=== PATIENT | female | born 1955 | race African-American/Black ===

== ENCOUNTER 2016-04-01 | Emergency (ER) | payer BC, OTHER ==
[~2016-04-01] VITALS: Ht 154.9 cm; Wt 110.2 kg
[2016-04-01 00:32] VITALS: BP 162/75
[2016-04-01] MEDS ORDERED: DILT240C2 PO (01:04)
--- NOTE | 2016-04-01 01:04 | PHYS DOC ---
Past Medical History Past Medical History: A-Fib, Anxiety, GERD, High Cholesterol, Hypertension Past Surgical History: Tonsillectomy, Other Additional Past Surgical Histo: HERNIA, BILATERAL LUMPECTOMY, CARPAL TUNNEL Alcohol Use: None Drug Use: None Adult General Chief Complaint Chief Complaint: HYPERTENSION [facility] HPI This is a 60-year-old female presents with concern for elevated blood pressure and in need of a new primary care follow-up for this. Patient states she has run out of her Cardizem dose at home and is in need of a refill and is will also a referral. She denies any specific complaints. She denies any headache. She denies any chest pain or shortness of breath. She complains of some mild pain that she's been having in her left hip but otherwise nothing new today. Patient was concerned as her blood pressure that she took earlier today was in the 140s systolic. Review of Systems Review of Systems Constitutional: Denies fever or chills [] Eyes: Denies change in visual acuity, redness, or eye pain [] HENT: Denies nasal congestion or sore throat [] Respiratory: Denies cough or shortness of breath [] Cardiovascular: No additional information not addressed in HPI [] GI: Denies abdominal pain, nausea, vomiting, bloody stools or diarrhea [] : Denies dysuria or hematuria [] Musculoskeletal: Denies back pain or joint pain [] Integument: Denies rash or skin lesions [] Neurologic: Denies headache, focal weakness or sensory changes [] Endocrine: Denies polyuria or polydipsia [] Physical Exam Physical Exam Constitutional: Well developed, well nourished, no acute distress, non-toxic appearance. [] HENT: Normocephalic, atraumatic, bilateral external ears normal, oropharynx moist, no oral exudates, nose normal. [] Eyes: PERRLA, EOMI, conjunctiva normal, no discharge. [] Neck: Normal range of motion, no tenderness, supple, no stridor. [] Cardiovascular:Heart rate regular rhythm, no murmur [] Lungs & Thorax: Bilateral breath sounds clear to auscultation [] Abdomen: Bowel sounds normal, soft, no tenderness, no masses, no pulsatile masses. [] Skin: Warm, dry, no erythema, no rash. [] Back: No tenderness, no CVA tenderness. [] Extremities: No tenderness, no cyanosis, no clubbing, ROM intact, no edema. [] Neurologic: Alert and oriented X 3, normal motor function, normal sensory function, no focal deficits noted. [] Psychologic: Affect normal, judgement normal, mood normal. [] Current Patient Data Vital Signs Vital Signs Date Time Temp Pulse Resp B/P Pulse Ox O2 Delivery O2 Flow Rate FiO2 04/01/16 00:32 97.9 84 20 162/75 99 Room Air 97.9 EKG EKG [] Radiology/Procedures Radiology/Procedures [] Course & Med Decision Making Course & Med Decision Making Pertinent Labs and Imaging studies reviewed. (See chart for details) This 60-year-old female who is essentially having no symptoms that is slightly elevated blood pressure 165/75 will be discharged from the hospital with a 10 day course of her usual Cardizem dose. I will also be providing her information for referral for a new primary care physician. I counseled the patient at length that she is to be seen within the next 10 days for her blood pressure and have it rechecked. She is very agreeable to this plan and discharged without incident. Dragon Disclaimer Dragon Disclaimer This electronic medical record was generated, in whole or in part, using a voice recognition dictation system. Departure Departure Impression: Primary Impression: Hypertension Disposition: 01 HOME, SELF-CARE Admitting Physician: Sarkis Villagran Condition: STABLE Referrals: NO PCP (PCP) Patient Instructions: Hypertension Additional Instructions: Please follow up with one of the physicians described in the pamphlet in the next 10 days. Take your medications as prescribed. Return to the ER if you develop any worsening of your symptoms. Scripts Diltiazem Hcl (Cardizem Cd)240 Mg Cap.er.24h1 Cap PO DAILY #10 CAP Ref 5 Prov:ANIYAH PEREZ DO 04/01/16 ANIYAH PEREZ DO Apr 01, 2016 01:04
== END 2016-04-01 01:13 | disposition home or self-care (01) ==
LOC: ER
DX: I10 Essential (primary) hypertension (principal); E78.00 Pure hypercholesterolemia, unspecified; K21.9 Gastro-esophageal reflux disease without esophagitis; I48.91 Unspecified atrial fibrillation; F41.9 Anxiety disorder, unspecified; Z98.890 Other specified postprocedural states
CPT/HCPCS: 99283